=== PATIENT | female | born 1990 | race Caucasian/White ===

== ENCOUNTER 2016-07-16 14:31 | Emergency (ER) | payer OTHER ==
[~2016-07-16] VITALS: Ht 165.1 cm; Wt 69.8 kg
[2016-07-16 15:30] LABS: MCH 28.8 PG (29.0-34.0); MCHC 33.6 G/DL (30.0-36.0); MCV 85.9 FL (83-99); MEAN PLAT.VOLUME 9.5 uM^3 (9.5-12.4); PLATELET COUNT 242 K/uL (156-360); RBC DIS.WIDTH-CV 13.4 % (11.8-14.6); RBC DIS.WIDTH-SD 41.9 % (39-53); RED BLOOD COUNT 5.24 M/uL (3.80-5.20); WHITE BLOOD COUNT 8.1 K/uL (4.1-10.2)
[2016-07-16 15:56] LABS: QUANTITATIVE HCG < 4.0 MIU/ML
[2016-07-16 15:59] LABS: CHLORIDE 107 mEq/L (99-109); POTASSIUM 3.9 mEq/L (3.7-5.4); SODIUM 141 mEq/L (136-147)
[2016-07-16 16:00] LABS: GLUCOSE 72 mg/dL (70-99)
[2016-07-16 16:02] LABS: ANION GAP 10 MEQ/L (2-14)
[2016-07-16 16:04] LABS: GFR ESTIMATE (CALCULATED) > 59 mL/min/
[2016-07-16 16:05] LABS: UREA NITROGEN (BUN) 15 mg/dL (9-23)
[2016-07-16] MEDS ORDERED: COGENTIN0.5 MG PO (18:01)
[2016-07-16] MEDS ORDERED: RISPERDAL4 MG PO (18:01)
[2016-07-16] MEDS ORDERED: EFFEXOR XR150 MG PO (18:02)
[2016-07-16] MEDS ORDERED: KLONOPIN0.5 M1 PO (18:03)
[2016-07-16 18:11] LABS: TOTAL BILIRUBIN 0.3 mg/dL (0.0-1.0)
[2016-07-16 18:12] LABS: ALKALINE PHOSPHATASE 83 IU/L (3-129)
[2016-07-16 18:14] LABS: DIRECT BILIRUBIN 0.1 mg/dL (0.0-0.3)
[2016-07-16 18:15] LABS: LIPASE 41 U/L (1.0-51.0)
[2016-07-16 18:38] LABS: ADD MIUA? YES; BILIRUBIN NEGATIVE; BLOOD NEGATIVE; COLOR AMBER ((YELLOW)); GLUCOSE (STRIP) NEGATIVE; KETONES NEGATIVE; LEUKOCYTES NEGATIVE; NITRITE POSITIVE; PROTEIN (STRIP) 30; SPECIFIC GRAVITY 1.026 (1.000-1.030)
[2016-07-16 19:13] LABS: BACTERIA NONE SEEN /HPF; EPITHELIAL CELLS RARE /HPF; MUCUS 4+ /LPF; RED BLOOD CELLS 0-5 /HPF (0-5); UCUL ADDED? NO; WHITE BLOOD CELLS 0-5 /HPF (0-5)
[2016-07-16] MEDS ORDERED: CIPRO500 MG PO (21:40)
[2016-07-16] MEDS ORDERED: FLAGYL500 MG PO (21:40)
[2016-07-16 22:29] VITALS: BP 139/81
== END 2016-07-16 22:32 | disposition home or self-care (01) ==
LOC: EME 14:31
DX: N39.0 Urinary tract infection, site not specified (principal); R10.31 Right lower quadrant pain; F17.200 Nicotine dependence, unspecified, uncomplicated
CPT/HCPCS: 74176; 80048; 80076; 81003; 83690; 84702; 85027; 87086; 99281; 99284; J1885